=== PATIENT | female | born 1995 | race Hispanic/Latino ===

== ENCOUNTER 2018-01-08 17:47 | Emergency (ER) | payer BC ==
--- NOTE | 2018-01-08 19:04 | RAD ---
CHEST TWO VIEWS: 01/08/18 HISTORY: Productive cough. COMPARISON: 04/22/14. FINDINGS: The cardiac silhouette and pulmonary vasculature are unremarkable. Mediastinum is midline. No conflue nt air space consolidation, pneumothorax, or pleural fluid. IMPRESSION: No active cardiopulmonary abnormalities are demonstrated. POS: [facility]
== END 2018-01-08 21:31 | disposition home or self-care (01) ==
LOC: ERS 17:47
DX: J18.9 Pneumonia, unspecified organism (principal)
CPT/HCPCS: 71046

== ENCOUNTER 2021-03-18 08:07 | Emergency (ER) | payer OTHER, SELFPAY ==
[2021-03-18] MEDS ORDERED: Acetaminophen 500 MG TAB ONE (09:00)
== END 2021-03-18 09:33 | disposition home or self-care (01) ==
LOC: ERS 08:07
DX: S16.1XXA Strain of muscle, fascia and tendon at neck level, initial encounter (principal); S39.012A Strain of muscle, fascia and tendon of lower back, initial encounter; V89.2XXA Person injured in unspecified motor-vehicle accident, traffic, initial encounter
CPT/HCPCS: 70450; 71045; 72125

== ENCOUNTER 2022-08-23 15:06 | Emergency (ER) | payer BC, OTHER ==
[2022-08-23] MEDS ORDERED: Ketorolac Tromethamine 30 MG/ML VIAL ONE (15:33)
[2022-08-23 15:41] LABS: Bilirubin Negative (Negative); Blood, Urine Negative (Negative); Clarity Clear (Clear); Glucose, Urine (Dipstick) Normal (Negative); Ketone, Urine Trace mg/dL (Negative); Leukocyte Negative Leu/uL (Negative); Nitrite Negative (Negative); Protein, Urine (Dipstick) 30 mg/dL (Neg-Trace); RBC/HPF 0-3 HPF (0-3); Specific Gravity, Urine 1.031 (1.002-1.036); Squamous Epithelial 0-3 HPF (0-3); Urobilinogen Normal mg/dL (Less than 2); WBC/HPF 0-3 HPF (0-3); pH, Urine 5.5 (5.0-9.0)
[2022-08-23 15:42] LABS: Bacteria/HPF Rare-Few HPF (None Seen)
[2022-08-23 15:53] LABS: #Lymphocytes 1.7 thou/uL (1.20-3.40); #Monocytes 0.6 thou/uL (0.11-0.59); #Neutrophils 14.4 thou/uL (1.40-6.50); %Eosinophils 0.2 % (0.0-10.0); %Lymphocytes 9.9 % (21.0-51.0); %Monocytes 3.7 % (0.0-10.0); %Neutrophils 86.2 % (42.0-75.0); Hemoglobin 12.6 g/dL (12.0-16.0); Mean Corpuscular HGB CONC 31.8 g/dL (32.0-36.0); Mean Corpuscular Volume 78.5 fl (78.0-98.0); Mean Platelet Volume 8.4 fL (7.4-10.4); Platelet Count 271 10x3/uL (130-400); RBC Distribution Width 14.3 % (11.5-14.5); Red Blood Cell (RBC) Count 5.05 mill/uL (4.20-5.40); White Blood Cell (WBC) Count 16.7 10x3/uL (4.8-10.8)
[2022-08-23 15:54] LABS: Pregnancy Test - Urine (BHCG) POSITIVE (Negative); Pregu Control Background? CLEAR/WHITE (CLR/WHITE); Pregu Control Bar Appear? YES (CONTROL BAR); Specific Gravity 1.031 (1.002-1.036)
[2022-08-23 16:00] LABS: BHCG - Serum Negative (NEGATIVE); Pregs Control Background? CLEAR/WHITE (CLR/WHITE); Pregs Control Bar Appear? YES (CONTROL BAR)
[2022-08-23 16:13] LABS: Anion Gap 13 mmol/L (10-20); BUN (Urea Nitrogen) 11 mg/dL (7.0-18.7); Calc. Creatinine Clearance 0 mL/min (70-130); Carbon Dioxide 23 mmol/L (22-29); Chloride 104 mmol/L (98-107); Estimated GFR 125; Glucose 108 mg/dL (70-105); Lipase 5 U/L (8-78); Potassium 3.7 mmol/L (3.5-5.1); Sodium 136 mmol/L (136-145)
[2022-08-23 16:14] LABS: ALT (SGPT) 15 U/L (8-55); AST (SGOT) 11 U/L (5-34); Alkaline Phosphatase 72 U/L (40-110); Bilirubin, Direct 0.3 mg/dL (0.1-0.3); Bilirubin, Total 0.5 mg/dL (0.2-1.2); Protein, Total 7.7 g/dL (6.0-8.3)
[2022-08-23] MEDS ORDERED: cefTRIAXone (ROCEPHIN) 1 GM VIAL ONE (17:56)
[2022-08-23] MEDS ORDERED: Azithromycin 250 MG TAB ONE (17:59)
[2022-08-23] MEDS ORDERED: Lidocaine 1% PF 5 ML VIAL ONE (17:59)
== END 2022-08-23 18:39 | disposition home or self-care (01) ==
LOC: ERS 15:06
DX: N73.9 Female pelvic inflammatory disease, unspecified (principal)
CPT/HCPCS: 36415; 76856; 80048; 80076; 81003; 81015; 81025; 83690; 84702; 84703; 85025; 86140; 96372; J0696; J1885

== ENCOUNTER 2022-08-25 16:31 | Emergency (ER) | payer BC, OTHER ==
[2022-08-25 17:09] LABS: #Eosinphils 0.3 thou/uL (0.0-0.7); #Lymphocytes 2.1 thou/uL (1.20-3.40); #Monocytes 0.5 thou/uL (0.11-0.59); #Neutrophils 6.6 thou/uL (1.40-6.50); %Basophils 0.4 % (0.0-1.0); %Eosinophils 2.7 % (0.0-10.0); %Lymphocytes 21.8 % (21.0-51.0); %Monocytes 5.2 % (0.0-10.0); %Neutrophils 69.9 % (42.0-75.0); Hemoglobin 12.4 g/dL (12.0-16.0); Mean Corpuscular HGB CONC 33.5 g/dL (32.0-36.0); Mean Corpuscular Hemoglobin 26.7 pg (27.0-31.0); Mean Corpuscular Volume 79.8 fl (78.0-98.0); Mean Platelet Volume 8.8 fL (7.4-10.4); Platelet Count 281 10x3/uL (130-400); RBC Distribution Width 14.1 % (11.5-14.5); Red Blood Cell (RBC) Count 4.64 mill/uL (4.20-5.40); White Blood Cell (WBC) Count 9.5 10x3/uL (4.8-10.8)
[2022-08-25 17:38] LABS: ALT (SGPT) 11 U/L (8-55); AST (SGOT) 12 U/L (5-34); Alkaline Phosphatase 70 U/L (40-110); Anion Gap 13 mmol/L (10-20); BUN (Urea Nitrogen) 11 mg/dL (7.0-18.7); Bilirubin, Total 0.2 mg/dL (0.2-1.2); Calc. Creatinine Clearance 0 mL/min (70-130); Calcium 9.4 mg/dL (7.8-10.44); Carbon Dioxide 24 mmol/L (22-29); Chloride 106 mmol/L (98-107); Estimated GFR 118; Globulin 3.9 g/dL (2.4-3.5); Glucose 89 mg/dL (70-105); Potassium 4.3 mmol/L (3.5-5.1); Protein, Total 7.9 g/dL (6.0-8.3); Sodium 139 mmol/L (136-145)
[2022-08-25] MEDS ORDERED: cefTRIAXone (ROCEPHIN) 1 GM VIAL ONE (18:41)
[2022-08-25] MEDS ORDERED: Lidocaine 1% PF 5 ML VIAL ONE (18:41)
[2022-08-25] MEDS ORDERED: Azithromycin 250 MG TAB ONE (18:41)
== END 2022-08-25 18:58 | disposition home or self-care (01) ==
LOC: ERS 16:31
DX: O23.91 Unspecified genitourinary tract infection in pregnancy, first trimester (principal); O13.1 Gestational [pregnancy-induced] hypertension without significant proteinuria, first trimester; Z3A.01 Less than 8 weeks gestation of pregnancy
CPT/HCPCS: 36415; 76856; 80053; 84702; 85025; 96372; J0696

== ENCOUNTER 2022-12-18 09:23 | Emergency (ER) | payer BC, OTHER ==
[2022-12-18] MEDS ORDERED: Ondansetron ODT 4 MG TAB ONE (09:53)
[2022-12-18] MEDS ORDERED: Dexameth. Sod Phosp. 10 MG/ML (CHEMO USE ONLY) ONE (09:53)
[2022-12-18] MEDS ORDERED: Ipratropium/Albuterol 3 ML NEB ONE (10:01)
[2022-12-18] MEDS ORDERED: guaiFENesin/Codeine 200 mg/20 mg 10 ml Cup PO SCH (11:00)
== END 2022-12-18 13:03 | disposition home or self-care (01) ==
LOC: ERS 09:23
DX: J06.9 Acute upper respiratory infection, unspecified (principal); A09 Infectious gastroenteritis and colitis, unspecified; I10 Essential (primary) hypertension
CPT/HCPCS: 71046; 96372; J1100; J7620; Q0162

== ENCOUNTER 2023-07-06 10:48 | Emergency (ER) | payer BC, OTHER ==
[2023-07-06] MEDS ORDERED: Ondansetron PF 4 MG/2 ML Vial ONE (11:21)
[2023-07-06 11:26] LABS: #Eosinphils 0.2 thou/uL (0.0-0.7); #Monocytes 0.5 thou/uL (0.11-0.59); #Neutrophils 8.4 thou/uL (1.40-6.50); %Basophils 0.1 % (0.0-1.0); %Eosinophils 1.8 % (0.0-10.0); %Lymphocytes 15.5 % (21.0-51.0); %Monocytes 4.5 % (0.0-10.0); %Neutrophils 77.8 % (42.0-75.0); Hematocrit 41.9 % (36.0-47.0); Hemoglobin 13.6 g/dL (12.0-16.0); Mean Corpuscular HGB CONC 32.5 g/dL (32.0-36.0); Mean Corpuscular Hemoglobin 26.8 pg (27.0-31.0); Mean Corpuscular Volume 82.5 fl (78.0-98.0); Mean Platelet Volume 10.9 fL (7.4-10.4); Platelet Count 311 10x3/uL (130-400); Red Blood Cell (RBC) Count 5.08 mill/uL (4.20-5.40); White Blood Cell (WBC) Count 10.8 10x3/uL (4.8-10.8)
[2023-07-06 11:52] LABS: ALT (SGPT) 8 U/L (8-55); AST (SGOT) 10 U/L (5-34); Alkaline Phosphatase 77 U/L (40-110); Anion Gap 15 mmol/L (10-20); BUN (Urea Nitrogen) 9 mg/dL (7.0-18.7); Bilirubin, Total 0.2 mg/dL (0.2-1.2); Calc. Creatinine Clearance 0 mL/min (70-130); Calcium 9.2 mg/dL (7.8-10.44); Carbon Dioxide 24 mmol/L (22-29); Chloride 106 mmol/L (98-107); Estimated GFR 121; Globulin 3.3 g/dL (2.4-3.5); Glucose 100 mg/dL (70-105); Potassium 3.9 mmol/L (3.5-5.1); Protein, Total 7.3 g/dL (6.0-8.3); Sodium 141 mmol/L (136-145)
[2023-07-06 12:43] LABS: Bacteria/HPF None Seen HPF (None Seen); Bilirubin Negative (Negative); Blood, Urine Negative (Negative); CAUTI Indications for Culture Pelvic or flank pain; Clarity Clear (Clear); Glucose, Urine (Dipstick) Normal (Negative); Ketone, Urine 10 mg/dL (Negative); Leukocyte Negative Leu/uL (Negative); Nitrite Negative (Negative); Protein, Urine (Dipstick) 10 mg/dL (Neg-Trace); RBC/HPF 0-3 HPF (0-3); Specific Gravity, Urine 1.029 (1.002-1.036); Urobilinogen Normal mg/dL (Less than 2); WBC/HPF 0-3 HPF (0-3)
[2023-07-06 12:44] LABS: Urine Culture Reflex No No
[2023-07-06 12:49] LABS: Pregnancy Test - Urine (BHCG) Negative (Negative); Pregu Control Background? CLEAR/WHITE (CLR/WHITE); Pregu Control Bar Appear? YES (CONTROL BAR); Specific Gravity 1.029 (1.002-1.036)
== END 2023-07-06 15:40 | disposition home or self-care (01) ==
LOC: ERS 10:48
DX: K80.20 Calculus of gallbladder without cholecystitis without obstruction (principal); I10 Essential (primary) hypertension
CPT/HCPCS: 36415; 74177; 76705; 80053; 81001; 81025; 85025; 96374; J2405